=== PATIENT | female | born 1970 | race Caucasian/White ===

== ENCOUNTER 2019-03-11 10:58 | Emergency (ER) | payer OTHER, MEDICAID, SELFPAY ==
[2019-03-11 11:13] VITALS: BP 136/79; PULSE 87; RESP 18; TEMP 36.6; O2SAT 100
--- NOTE | 2019-03-11 11:57 | DI.RAD.S_ITS ---
PROCEDURE: XR HIP W PEL IF DONE LT 2V INDICATIONS: severe L hip pain, into groin TECHNIQUE: 2 views of the hip were acquired. COMPARISON: None. FINDINGS: Bones: No fractures or dislocations. No suspicious bony lesions. The visualized pelvic ring appears intact. Soft tissues: No suspicious soft tissue calcifications or masses. IMPRESSION: No acute fracture of the left hip. Dictated by: Nilton Soria M.D. on 03/11/2019 at 11:54 Approved by: Nilton Soria M.D. on 03/11/2019 at 11:55
[2019-03-11] MEDS: diazePAM 5 MG TABLET PO (12:32)
[2019-03-11] MEDS: KETOROLAC 60 MG/2 ML VIAL IM (12:33)
--- NOTE | 2019-03-11 12:46 | ED.LOWEXIN ---
HPI - Extremity Injury (Lower) General Chief Complaint: Extremity Injury, Lower Stated Complaint: severe L hip pain Time Seen by Provider: 03/11/19 11:10 Source: patient and family Mode of arrival: ambulatory Limitations: no limitations History of Present Illness HPI Narrative: 49-year-old female smoker presents with severe left anterior hip pain after she was rotating at the hip and reaching for an object to move. She denies any trauma. Her pain is worse with motion and improves with rest. It is largely in her anterior hip though some in her left buttock. There is minimal radiation of her pain. She denies any trouble controlling bowel or bladder. She has no numbness in her groin. She denies any lower extremity weakness. MD complaint: hip injury Onset (ago): day(s) Type of Injury: other Place: home Severity: moderate Relieving factors: immobilization and rest Exacerbating factors: weight bearing and movement Context: other Associated symptoms: snap/pop sensation and able to partially bear weight Other symptoms: none Related Data Previous Rx's Medication Instructions Recorded diazepam [Valium] 5 mg PO BID-QID PRN #10 tab 03/11/19 ketorolac 10 mg PO Q6H PRN #14 tab 03/11/19 Allergies Allergy/AdvReac Type Severity Reaction Status Date / Time carisoprodol [From Soma] Allergy Vomiting Verified 03/11/19 11:13 Review of Systems Constitutional Denies chills, Denies fever(s), Denies lethargy and Denies weakness Eyes Denies change in vision, Denies eye discharge, Denies irritation and Denies loss of vision ENT Ears, Nose, Mouth, and Throat: Denies change in voice, Denies neck pain and Denies sore throat Cardiovascular Denies chest pain, Denies irregular heart rhythm, Denies lightheadedness, Denies palpitations, Denies dyspnea, Denies dyspnea on exertion and Denies orthopnea Respiratory Denies cough, Denies dyspnea, Denies dyspnea on exertion and Denies wheezing Gastrointestinal Gastrointestinal: Denies abdominal pain, Denies change in bowel habits, Denies diarrhea, Denies nausea and Denies vomiting Genitourinary Denies hematuria, Denies flank pain, Denies urinary incontinence and Denies urinary urgency Musculoskeletal Reports limited range of motion and Denies neck pain Integumentary/Breasts Denies pruritus, Denies erythema, Denies rash and Denies wounds Neurologic Denies confusion, Denies loss of vision and Denies weakness Psychiatric Denies anxiety, Denies confusion, Denies depression, Denies homicidal ideation and Denies suicidal ideation Endocrine Denies palpitations Hematologic/Lymphatic Denies easy bruising Allergic/Immunologic Denies wheezing PFSH Social History Smoking Status: Current every day smoker Social History Smoking Status: Current every day smoker Exam Narrative Exam Narrative: GEN: AOx3 and in mild distress EYES: Pupils are equal, round, and reactive to light and accommodation. Extraoccular muscles are intact bilaterally. There is no subconjunctival hemorrhage or exudate. CHEST: Lungs are clear to auscultation bilaterally and free of wheezes, rales, or rhonchi. Heart rate is regular rhythm, there are no murmurs, clicks, rubs, or gallops. There is no chest wall tenderness. ABD: Abdomen is soft and nontender. There is no guarding or rebound. Bowel sounds are normal in all 4 quadrants. There is no mass or organomegaly. EXT: No shortening or external rotation of left lower extremity. 5/5 strength with sensation intact. 2+ patellar reflexes. Tender to palpate in anterior hip and left buttock Full but painful ROM of all extremities with no loss of sensation or strength. SKIN: Warm, pink, and dry. No erythema or rash Initial Vital Signs Initial Vital Signs: Vital Signs Temperature 97.9 F 03/11/19 11:13 Pulse Rate 87 03/11/19 11:13 Respiratory Rate 18 03/11/19 11:13 Blood Pressure 136/79 03/11/19 11:13 Pulse Oximetry 100 03/11/19 11:13 Course Orders Ordered: Discontinued Medications Diazepam (Valium) 5 mg PO NOW ONE Stop: 03/11/19 11:58 Last Admin: 03/11/19 12:32 Dose: 5 mg Ketorolac Tromethamine (Toradol) 60 mg IM NOW ONE Stop: 03/11/19 11:58 Last Admin: 03/11/19 12:33 Dose: 60 mg Vital Signs - 8 hr 03/11/19 11:13 Temperature 97.9 F Pulse Rate 87 Respiratory Rate 18 Blood Pressure 136/79 Pulse Oximetry 100 MDM - Extremity Injury (Lower) Imaging Data Hip Xray: Radiologist's impression: [address] [address] XRay Report Signed Patient: Criss MartínezMR#: [id number] : 1970Acct:[id number] Age/Sex: 49 / FDate of Service: 03/11/19 Loc: ED Accession Number: [id number] Procedure: XR hip w pel if done LT 2V Ordering Provider: Anup George D.O. PROCEDURE: XR HIP W PEL IF DONE LT 2V INDICATIONS: severe L hip pain, into groin TECHNIQUE: 2 views of the hip were acquired. COMPARISON: None. FINDINGS: Bones: No fractures or dislocations. No suspicious bony lesions. The visualized pelvic ring appears intact. Soft tissues: No suspicious soft tissue calcifications or masses. IMPRESSION: No acute fracture of the left hip. Dictated by: Nilton Soria M.D. on 03/11/2019 at 11:54 Approved by: Nilton Soria M.D. on 03/11/2019 at 11:55 Discharge Plan Departure Patient Disposition: Home Clinical Impression: Hip strain Qualifiers: Encounter type: initial encounter Laterality: left Qualified Code(s): S76.012A - Strain of muscle, fascia and tendon of left hip, initial encounter Discharge Date/Time: 03/11/19 13:26 Interventions: ED Discharge Assessment Last Done: 03/11/19 13:26 Instructions: DI for Groin Strain Activity Restrictions/Additional Instructions: *You have been diagnosed with [ Left hip pain ] *What to do: *Take medications as directed *Follow up with your primary care provider in 2-3 days, call for an appointment. Let them know you were seen in the Emergency Department and that we ask that you be seen in follow up *Return to ER if you should have any new, worsening or concerning symptoms Prescriptions: New ketorolac 10 mg tablet 10 mg PO Q6H PRN (Reason: pain) Qty: 14 RF: 0 diazepam [Valium] 5 mg tablet 5 mg PO BID-QID PRN (Reason: muscle spasm) Qty: 10 RF: 0 Referrals: Adan Haque MD [Primary Care Provider] -
== END 2019-03-11 13:26 | disposition home or self-care (01) ==
PROVIDERS: Emergency Provider Emergency Medicine; PCP Family Medicine
DX: S76.012A Strain of muscle, fascia and tendon of left hip, initial encounter (principal); X50.9XXA Other and unspecified overexertion or strenuous movements or postures, initial encounter
CPT/HCPCS: 73502; 99282; 99283; J1885

== ENCOUNTER → 2019-10-25 14:21 | Outpatient (CLI) | payer OTHER, MEDICAID, SELFPAY ==
[2019-10-25 17:10] LABS: Influenza A - CEPHEID Flu A NEGATIVE (NEGATIVE); Influenza B - CEPHEID Flu B NEGATIVE (NEGATIVE)
[2019-10-26 22:58] LABS: COVID19 Sendout Not Detected (Not Detected)
== END ==
PROVIDERS: PCP Family Medicine; Visit Provider Physician Assistant
DX: R05 Cough (principal)
CPT/HCPCS: 87502; 87635

== ENCOUNTER 2021-03-07 19:21 | Emergency (ER) | payer OTHER, MEDICAID, SELFPAY ==
[2021-03-07 19:30] VITALS: BP 171/101; PULSE 82; RESP 18; TEMP 37; O2SAT 100; BMI 30.4
--- NOTE | 2021-03-07 19:38 | DI.RAD.S_ITS ---
PROCEDURE: XR CHEST 1V INDICATIONS: chest pain TECHNIQUE: One view of the chest was acquired. COMPARISON: None. FINDINGS: Surgical changes and devices: None. Lungs and pleura: Lungs are mildly hyperlucent. There is radiodensity projecting the medial right upper lobe, likely related to degenerative hypertrophy at the end of the right 1st rib arc. No other alveolar consolidations or pleural effusion. No pneumothorax. Mediastinum: Mediastinal contours appear normal. Heart size is normal. Bones and chest wall: No suspicious bony lesions. Overlying soft tissues appear unremarkable. IMPRESSION: 1. Mild hyperlucency. 2. Probable degenerative opacity, less likely right upper lobe lung lesion. Two views of the chest or Chest CT as an outpatient is recommended. Dictated by: Danielle Alvarado M.D. on 03/07/2021 at 20:27 Approved by: Danielle Alvarado M.D. on 03/07/2021 at 20:29
[2021-03-07 19:48] LABS: Add Manual Diff / Slide Review NO; Basophils Absolute Auto 100 /uL (0-100); Basophils Percent Auto 0.7 % (0-2); Eosinophils Absolute Auto 100 /uL (0-450); Eosinophils Percent Auto 1.7 % (2-4); Hematocrit 39.8 % (36-46); Hemoglobin 13.4 g/dL (12.0-16.0); Lymphocytes Absolute Auto 2600 /uL (1100-4500); Lymphocytes Percent Auto 31.3 % (25-40); Mean Corpuscular HGB Conc 33.5 % (30-36); Mean Corpuscular Hemoglobin 30.2 PG (26-34); Mean Corpuscular Volume 90.1 fL (80-100); Monocytes Absolute Auto 600 /uL (0-900); Monocytes Percent Auto 7.3 % (3-14); Neutrophils Absolute Auto 4800 /uL (1500-7000); Platelet Count 243 X10^3/uL (150-400); Red Blood Cell Count 4.42 X10^6/uL (4.0-5.2); Red Cell Distribution Width 12.9 % (11.6-14.8); White Blood Cell Count 8.2 X10^3/uL (4.5-11.0)
[2021-03-07 19:50] LABS: Alanine Aminotransferase 20 IU/L (<35); Albumin 4.7 g/dL (3.5-5.0); Albumin Globulin Ratio 1.6 (1.0-2.8); Alkaline Phosphatase 102 U/L (38-126); Aspartate Aminotransferase 26 IU/L (14-36); BUN Creatinine Ratio 15.7 (6-22); Bilirubin Total 0.4 mg/dL (0.2-1.3); Blood Urea Nitrogen 14 mg/dL (7-17); Calcium 9.9 mg/dL (8.4-10.2); Carbon Dioxide 28 mmol/L (22-32); Chloride 105 mmol/L (98-107); Creatine Kinase 216 U/L (30-135); Estimated Glomerular Filt Rate > 60.0 mL/min (>60); Globulin 2.9 g/dL (1.7-4.1); Glucose 111 mg/dL (70-100); HEMOLYSIS < 15 (0-50); Lipase 237 U/L (23-300); Potassium 3.8 mmol/L (3.4-5.1); Sodium 141 mmol/L (137-145); Total Protein 7.6 g/dL (6.3-8.2)
[2021-03-07 20:02] LABS: Troponin I < 0.012 ng/mL (0.01-0.034)
[2021-03-07 20:06] LABS: CKMB % Relative Index 0.9 % (1.5-5.0); Creatine Kinase MB 2.04 ng/mL (<2.37)
[2021-03-07 20:22] VITALS: BP 152/88; PULSE 81; RESP 19; O2SAT 100
--- NOTE | 2021-03-07 20:25 | ED_ITS ---
HPI - Chest Pain General Chief Complaint: Chest Pain Stated Complaint: CHEST PAIN Time Seen by Provider: 03/07/21 19:44 Source: patient Mode of arrival: Ambulatory Limitations: no limitations History of Present Illness HPI narrative: 51-year-old female who is here for evaluation of lower left-sided chest discomfort. She also has discomfort in the middle for back. She also states that it radiates down her arm. Has started this morning at 0900 hours. It is reproducible with palpation of both her chest and her back. She was at work at the time. Did not come home from work in finished her day. No problems with breathing. Has never had anything like this in the past. Related Data Previous Rx's Medication Instructions Recorded diazepam 5 mg tablet (Valium) 5 mg PO BID-QID PRN #10 tab 03/11/19 ketorolac 10 mg tablet 10 mg PO Q6H PRN #14 tab 03/11/19 doxycycline monohydrate 100 mg 100 mg PO BID #20 tab 10/25/19 tablet prednisone 20 mg tablet See Rx Instructions PO DAILY #16 10/25/19 tab Allergies Allergy/AdvReac Type Severity Reaction Status Date / Time oseltamivir [From Tamiflu] Allergy Severe projectile Verified 10/25/19 14:00 vomiting carisoprodol [From Soma] Allergy Vomiting Verified 10/25/19 13:59 Sulfa (Sulfonamide AdvReac Vomiting Verified 03/07/21 19:35 Antibiotics) Review of Systems Constitutional Constitutional: Reports system reviewed and no additional complaints, except as documented Cardiovascular Cardiovascular: Reports as per HPI Respiratory Respiratory: Reports as per HPI Gastrointestinal Gastrointestinal: Reports system reviewed and no additional complaints, except as documented Musculoskeletal Musculoskeletal: Reports as per HPI Integumentary/Breasts Skin/Breast: Reports system reviewed and no additional complaints, except as documented Neurologic Neurologic: Reports system reviewed and no additional complaints, except as documented Hematologic/Lymphatic On Anticoagulants: No Patient History Medical History COPD with acute exacerbation Social History Smoking Status: Current every day smoker Smoking Status: Current every day smoker alcohol intake frequency: other Substance Use Type: marijuana Exam Initial Vital Signs Initial Vital Signs: Vital Signs Temperature 98.6 F 03/07/21 19:30 Pulse Rate 82 03/07/21 19:30 Respiratory Rate 18 03/07/21 19:30 Blood Pressure 171/101 H 03/07/21 19:30 Pulse Oximetry 100 03/07/21 19:30 Const General: cooperative and comfortable HENMT Head: normal to inspection and normocephalic Eyes General: appearance normal, both eyes and all related structures Resp Effort & Inspection: normal respiratory effort Auscultation: clear to auscultation bilaterally Cardio Rate: regular rate Rhythm: regular rhythm GI Inspection: normal to inspection Palpation: soft Back/Spine/Pelvis Thoracic/Lumbar Spine: paraspinal tenderness (Left-sided thorax along the medial aspect of the scapula) Skin General: no rashes or lesions noted Neuro General: patient alert, patient awake and moves all extremities Extrem General: normal to inspection and capillary refill normal Psych Appearance: grossly normal and well kempt Scores HEART Score Heart Score history: Slightly Suspicious Heart Score EKG: Normal Heart Score Age: 45-64 years old Heart Score risk factors: No known risk factors Heart Score troponin: < or = to normal limit Heart Score Total: 1 Course Orders Ordered: ED Orders 03/07/21 19:30 Complete Blood Count AUTO DIFF Stat Comprehensive Metabolic Panel Stat Lipase Stat Troponin & CK Cardiac Panel Stat 03/07/21 19:38 XR chest 1V Stat EKG-12 Lead Stat Vital Signs Vital signs: Vital Signs - 8 hr 03/07/21 19:30 03/07/21 20:22 Temperature 98.6 F Pulse Rate 82 81 Respiratory Rate 18 19 Blood Pressure 171/101 H 152/88 H Pulse Oximetry 100 100 MDM - Chest Pain Lab Data Attestation: I reviewed the patient's lab results. Result diagrams: 03/07/21 19:30 03/07/21 19:30 Labs: Lab Results 03/07/21 03/07/21 Range/Units 19:30 19:30 WBC 8.2 (4.5-11.0) X10^3/uL RBC 4.42 (4.0-5.2) X10^6/uL Hgb 13.4 (12.0-16.0) g/dL Hct 39.8 (36-46) % MCV 90.1 (80-100) fL MCH 30.2 (26-34) PG MCHC 33.5 (30-36) % RDW 12.9 (11.6-14.8) % Plt Count 243 (150-400) X10^3/uL Neut % (Auto) 59.0 (50-75) % Lymph % (Auto) 31.3 (25-40) % Geary % (Auto) 7.3 (3-14) % Eos % (Auto) 1.7 L (2-4) % Baso % (Auto) 0.7 (0-2) % Neut # (Auto) 4800 (1984-0890) /uL Lymph # (Auto) 2600 (7116-4304) /uL Geary # (Auto) 600 (0-900) /uL Eos # (Auto) 100 (0-450) /uL Baso # (Auto) 100 (0-100) /uL Sodium 141 (137-145) mmol/L Potassium 3.8 (3.4-5.1) mmol/L Chloride 105 (98-107) mmol/L Carbon Dioxide 28 (22-32) mmol/L BUN 14 (7-17) mg/dL Creatinine 0.89 (0.52-1.04) mg/dL Estimated GFR > 60.0 (>60) mL/min BUN/Creatinine Ratio 15.7 (6-22) Glucose 111 H (70-100) mg/dL Calcium 9.9 (8.4-10.2) mg/dL Total Bilirubin 0.4 (0.2-1.3) mg/dL AST 26 (14-36) IU/L ALT 20 (<35) IU/L Alkaline Phosphatase 102 (38-126) U/L Total Creatine Kinase 216 H (30-135) U/L CK-MB (CK-2) 2.04 (<2.37) ng/mL CK-MB (CK-2) Rel Index 0.9 L (1.5-5.0) % Troponin I < 0.012 (0.01-0.034) ng/mL Total Protein 7.6 (6.3-8.2) g/dL Albumin 4.7 (3.5-5.0) g/dL Globulin 2.9 (1.7-4.1) g/dL Albumin/Globulin Ratio 1.6 (1.0-2.8) Lipase 237 (23-300) U/L Imaging Data Chest x-ray: Radiologist's Impression: [address] [address]DDev ReportSigned Patient: Criss MartínezMR#: [id number]: 1970Acct:[id number]/Sex: 51 / FDate of Service: 03/07/21Loc: EDAccession Number: [id number] Procedure: XR chest 1V Ordering Provider: Adan Oliva D.O. PROCEDURE: XR CHEST 1V INDICATIONS: chest pain TECHNIQUE: One view of the chest was acquired. COMPARISON: None. FINDINGS: Surgical changes and devices: None. Lungs and pleura: Lungs are mildly hyperlucent. There is radiodensity projecting the medial right upper lobe, likely related to degenerative hypertrophy at the end of the right 1st rib arc. No other alveolar consolidations or pleural effusion. No pneumothorax. Mediastinum: Mediastinal contours appear normal. Heart size is normal. Bones and chest wall: No suspicious bony lesions. Overlying soft tissues appear unremarkable. IMPRESSION: 1. Mild hyperlucency. 2. Probable degenerative opacity, less likely right upper lobe lung lesion. Two views of the chest or Chest CT as an outpatient is recommended. Dictated by: Danielle Alvarado M.D. on 03/07/2021 at 20:27 Approved by: Danielle Alvarado M.D. on 03/07/2021 at 20:29 ECG Data Attestation: I personally reviewed and interpreted this ECG as follows: Interpretation: Sinus rhythm Ventricular rate 83 Normal axis Normal QRS Normal QTC No ST T wave changes MDM Narrative Medical decision making narrative: Patient is nontoxic. Troponin is negative. EKG is unremarkable. Low suspicion for ACS given the fact that her symptoms are reproducible with palpitations. Feel that we can hold on further workup for now. Do suspect that this is musculoskeletal given her presentation however she was given strict return precautions and follow-up instructions. She expressed understanding and agreement. Discharge Plan Departure Patient Disposition: Home Clinical Impression: Atypical chest pain Instructions: DI for Atypical Chest Pain Activity Restrictions/Additional Instructions: Your workup here in the emergency department include your x-rays and labs and EKG are all very reassuring. I do recommend that you start on a medicine called famotidine/Pepcid. You can purchase this [id number]. It may help with your symptoms. I recommend you contact your primary doctor for a follow-up to discuss further workup to include potential stress test and also potentially a referral to see Gastroenterology. Continue the rest of your medications as directed. Return to the emergency department for any new or worsening symptoms Prescriptions: No Action prednisone 20 mg tablet See Rx Instructions PO DAILY Qty: 16 RF: 0 doxycycline monohydrate 100 mg tablet 100 mg PO BID Qty: 20 RF: 0 ketorolac 10 mg tablet 10 mg PO Q6H PRN (Reason: pain) Qty: 14 RF: 0 diazepam [Valium] 5 mg tablet 5 mg PO BID-QID PRN (Reason: muscle spasm) Qty: 10 RF: 0 Referrals: Allen Rowan MD [Primary Care Provider] -
== END 2021-03-07 20:36 | disposition home or self-care (01) ==
PROVIDERS: Emergency Provider Emergency Medicine; PCP Internal Medicine
DX: R07.89 Other chest pain (principal); M54.6 Pain in thoracic spine
CPT/HCPCS: 36415; 71045; 80053; 82550; 82553; 83690; 84484; 85025; 93005; 99284

== ENCOUNTER 2021-03-30 13:29 | Emergency (ER) | payer OTHER, MEDICAID, SELFPAY ==
[2021-03-30 13:41] VITALS: BP 159/85; PULSE 84; RESP 16; TEMP 36.2; O2SAT 99; BMI 28.7
--- NOTE | 2021-03-30 14:32 | DI.RAD.S_ITS ---
PROCEDURE: XR FOREARM LT 2V INDICATIONS: Wrist, elbow pain TECHNIQUE: 2 views of the forearm were acquired. COMPARISON: [facility], CR, XR WRIST LT MIN 3V, 03/30/2021, 14:36. FINDINGS: Bones: No fractures or dislocations. No suspicious bony lesions. Soft tissues: No suspicious soft tissue calcifications or masses. IMPRESSION: Negative forearm radiographs. Dictated by: Darci Franklin M.D. on 03/30/2021 at 14:06 Approved by: Darci Franklin M.D. on 03/30/2021 at 14:08
--- NOTE | 2021-03-30 14:32 | DI.RAD.S_ITS ---
PROCEDURE: XR ELBOW LT MIN 3V INDICATIONS: Elbow pain TECHNIQUE: 3 views of the elbow were acquired. COMPARISON: [facility], CR, XR CHEST 1V, 03/07/2021, 20:04. [facility], CR, XR WRIST LT MIN 3V, 03/30/2021, 14:36. FINDINGS: Bones: No fractures or dislocations. No suspicious bony lesions. Soft tissues: No elbow joint effusion. No suspicious soft tissue calcifications. IMPRESSION: No acute bony abnormality or evident degenerative change. Dictated by: Darci Franklin M.D. on 03/30/2021 at 14:05 Approved by: Darci Franklin M.D. on 03/30/2021 at 14:06
--- NOTE | 2021-03-30 14:32 | DI.RAD.S_ITS ---
PROCEDURE: XR WRIST LT MIN 3V INDICATIONS: Wrist, elbow pain TECHNIQUE: For views of the wrist were acquired. COMPARISON: [facility], CR, XR FOREARM LT 2V, 03/30/2021, 14:36. FINDINGS: Bones: No fractures or dislocations. No suspicious bony lesions. Scaphoid view: Scaphoid is intact. Soft tissues: Globular amorphous calcification projects over the scapholunate interval. IMPRESSION: 1. No acute bony abnormality. 2. Globular amorphous calcification projects over the scapholunate interval and may be the result of ligamentous degeneration or remote soft tissue trauma. Dictated by: Darci Franklin M.D. on 03/30/2021 at 14:08 Approved by: Darci Franklin M.D. on 03/30/2021 at 14:11
[2021-03-30] MEDS: KETOROLAC 30 MG/ML VIAL 15 MG IV (14:44)
--- NOTE | 2021-03-30 14:50 | ED.EXTPRO ---
HPI - Extremity Problem <Garry Austin PA-C - Last Filed: 03/30/21 16:04> General Chief complaint: Extremity Problem,Nontraumatic Stated complaint: Can't move LT wrist Time Seen by Provider: 03/30/21 13:52 Source: patient Mode of arrival: Family Vehicle Limitations: no limitations History of Present Illness HPI Narrative: 51-year-old female with past medical history hypertension presents to the ED with 1 day of left wrist, forearm pain. Patient endorses she was awakened at 3:30 a.m. this morning by left-sided wrist pain that radiates to her left forearm and elbow. Patient denies trauma, works as a cashier and waiter/waitress. Patient denies numbness, tingling, weakness. Patient's wrist movement is limited by pain. Patient endorses a history of sleeping on her arm. No prior episodes of wrist pain. Denies fever, chills, chest pain, shortness of breath, cough. Reports taking hydrocodone with acetaminophen this morning without much relief. Related Data Previous Rx's Medication Instructions Recorded diazepam 5 mg tablet (Valium) 5 mg PO BID-QID PRN #10 tab 03/11/19 ketorolac 10 mg tablet 10 mg PO Q6H PRN #14 tab 03/11/19 doxycycline monohydrate 100 mg 100 mg PO BID #20 tab 10/25/19 tablet prednisone 20 mg tablet See Rx Instructions PO DAILY #16 10/25/19 tab Allergies Allergy/AdvReac Type Severity Reaction Status Date / Time oseltamivir [From Tamiflu] Allergy Severe projectile Verified 03/30/21 13:41 vomiting carisoprodol [From Soma] Allergy Vomiting Verified 03/30/21 13:41 Sulfa (Sulfonamide AdvReac Vomiting Verified 03/30/21 13:41 Antibiotics) Review of Systems <Garry Austin PA-C - Last Filed: 03/30/21 16:04> Constitutional Constitutional: Denies chills, Denies fever(s), Denies frequent falls, Denies lethargy and Denies weakness ENT Ears, Nose, Mouth, and Throat: Denies dizziness Cardiovascular Cardiovascular: Denies chest pain, Denies irregular heart rhythm, Denies lightheadedness, Denies palpitations, Denies dyspnea, Denies dyspnea on exertion and Denies orthopnea Respiratory Respiratory: Denies cough, Denies dyspnea, Denies dyspnea on exertion and Denies wheezing Gastrointestinal Gastrointestinal: Denies abdominal pain, Denies change in bowel habits, Denies diarrhea, Denies nausea and Denies vomiting Musculoskeletal Musculoskeletal: Denies numbness Comments: Left Wrist, forearm, elbow pain. No numbness, tingling, weakness Integumentary/Breasts Skin/Breast: Denies pruritus, Denies erythema, Denies rash and Denies wounds Neurologic Neurologic: Denies behavioral changes, Denies confusion, Denies dizziness, Denies frequent falls, Denies numbness and Denies weakness Psychiatric Psychiatric: Denies behavioral changes and Denies confusion Endocrine Endocrine: Denies palpitations Allergic/Immunologic Allergic/Immunologic: Denies wheezing Patient History <Garry Austin PA-C - Last Filed: 03/30/21 16:04> Medical History COPD with acute exacerbation Social History Smoking Status: Former smoker Smoking Status: Former smoker tobacco type: cigarettes alcohol intake frequency: a few times a month Substance Use Type: marijuana Exam <Garry Austin PA-C - Last Filed: 03/30/21 16:04> Initial Vital Signs Initial Vital Signs: Vital Signs Temperature 97.2 F L 03/30/21 13:41 Pulse Rate 84 03/30/21 13:41 Respiratory Rate 16 03/30/21 13:41 Blood Pressure 159/85 H 03/30/21 13:41 Pulse Oximetry 99 03/30/21 13:41 Const General: cooperative Chest Chest: normal inspection of the chest Resp Effort & Inspection: normal respiratory effort, able to speak in complete sentences, no respiratory distress and no use of accessory muscles Auscultation: clear to auscultation bilaterally, no rales, no rhonchi and no wheezes Cardio Rate: regular rate Rhythm: regular rhythm Heart Sounds: no click, no gallops, no murmurs and no rubs Pulses: normal peripheral pulses Skin General: no rashes or lesions noted, No jaundice and No petechiae Neuro General: patient alert, patient oriented x3, gait normal and no focal motor deficits Speech: speech normal Extrem General: full ROM, no clubbing, cyanosis or edema, no pedal edema and no calf tenderness Other: Range of motion of Left wrist limited by pain. No wrist drop, no sensory deficits. Thumb abduction intact. Neurovascularly intact. Cap refill less than 2 seconds. Extremity well perfused, warm. No deformities, swelling, bruising, redness. Full range of motion of fingers, elbow, shoulder. Psych Appearance: well kempt Mental Status: mental status grossly normal Attitude: cooperative Thought Content: normal and suicidality Judgment: judgment good <Taryn Farnsworth DO - Last Filed: 03/31/21 07:37> Initial Vital Signs Initial Vital Signs: Vital Signs Temperature 97.2 F L 03/30/21 13:41 Pulse Rate 84 03/30/21 13:41 Respiratory Rate 16 03/30/21 13:41 Blood Pressure 159/85 H 03/30/21 13:41 Pulse Oximetry 99 03/30/21 13:41 Course <Garry Austin PA-C - Last Filed: 03/30/21 16:04> Course Course Narrative: Pain improved with Ketorolac. Neg xrays. Will DC home with ortho referral. Orders Ordered: Discontinued Medications Sodium Chloride (Normal Saline 0.9%) 1,000 mls @ 1,000 mls/hr IV BOLUS ONE Stop: 03/30/21 14:51 Last Admin: 03/30/21 14:55 Dose: Not Given Documented by: ATILIO Ketorolac Tromethamine (Ketorolac 30 Mg/Ml Vial) 15 mg IM NOW ONE Stop: 03/30/21 14:33 Last Admin: 03/30/21 14:56 Dose: Not Given Documented by: ATILIO Ketorolac Tromethamine (Ketorolac 30 Mg/Ml Vial) 15 mg IV NOW ONE Stop: 03/30/21 14:41 Last Admin: 03/30/21 14:44 Dose: 15 mg Documented by: ATILIO Vital Signs Vital signs: Vital Signs - 8 hr 03/30/21 13:41 Temperature 97.2 F L Pulse Rate 84 Respiratory Rate 16 Blood Pressure 159/85 H Pulse Oximetry 99 <Taryn Farnsworth DO - Last Filed: 03/31/21 07:37> Orders Ordered: Discontinued Medications Sodium Chloride (Normal Saline 0.9%) 1,000 mls @ 1,000 mls/hr IV BOLUS ONE Stop: 03/30/21 14:51 Last Admin: 03/30/21 14:55 Dose: Not Given Documented by: ATILIO Ketorolac Tromethamine (Ketorolac 30 Mg/Ml Vial) 15 mg IM NOW ONE Stop: 03/30/21 14:33 Last Admin: 03/30/21 14:56 Dose: Not Given Documented by: ATILIO Ketorolac Tromethamine (Ketorolac 30 Mg/Ml Vial) 15 mg IV NOW ONE Stop: 03/30/21 14:41 Last Admin: 03/30/21 14:44 Dose: 15 mg Documented by: ATILIO Vital Signs Vital signs: Vital Signs - 8 hr 03/30/21 13:41 Temperature 97.2 F L Pulse Rate 84 Respiratory Rate 16 Blood Pressure 159/85 H Pulse Oximetry 99 MDM - Extremity (Nontraumatic) <Garry Austin PA-C - Last Filed: 03/30/21 16:04> Imaging Data Extremity x-ray #1: Radiologist's Impression: PROCEDURE: XR WRIST LT MIN 3V INDICATIONS: Wrist, elbow pain TECHNIQUE: For views of the wrist were acquired. COMPARISON: [facility], , XR FOREARM LT 2V, 03/30/2021, 14:36. FINDINGS: Bones: No fractures or dislocations. No suspicious bony lesions. Scaphoid view: Scaphoid is intact. Soft tissues: Globular amorphous calcification projects over the scapholunate interval. IMPRESSION: 1. No acute bony abnormality. 2. Globular amorphous calcification projects over the scapholunate interval and may be the result of ligamentous degeneration or remote soft tissue trauma. Dictated by: Darci Franklin M.D. on 03/30/2021 at 14:08 Approved by: Darci Franklin M.D. on 03/30/2021 at 14:11 Extremity x-ray #2: Radiologist's Impression: PROCEDURE: XR FOREARM LT 2V INDICATIONS: Wrist, elbow pain TECHNIQUE: 2 views of the forearm were acquired. COMPARISON: [facility], CR, XR WRIST LT MIN 3V, 03/30/2021, 14:36. FINDINGS: Bones: No fractures or dislocations. No suspicious bony lesions. Soft tissues: No suspicious soft tissue calcifications or masses. IMPRESSION: Negative forearm radiographs. Dictated by: Darci Franklin M.D. on 03/30/2021 at 14:06 Approved by: Darci Franklin M.D. on 03/30/2021 at 14:08 Extremity x-ray #3: Radiologist's Impression: PROCEDURE: XR ELBOW LT MIN 3V INDICATIONS: Elbow pain TECHNIQUE: 3 views of the elbow were acquired. COMPARISON: [facility], CR, XR CHEST 1V, 03/07/2021, 20:04. [facility], CR, XR WRIST LT MIN 3V, 03/30/2021, 14:36. FINDINGS: Bones: No fractures or dislocations. No suspicious bony lesions. Soft tissues: No elbow joint effusion. No suspicious soft tissue calcifications. IMPRESSION: No acute bony abnormality or evident degenerative change. Dictated by: Darci Franklin M.D. on 03/30/2021 at 14:05 Approved by: Darci rFanklin M.D. on 03/30/2021 at 14:06 MDM Narrative Medical decision making narrative: 51-year-old female with past medical history hypertension presents to the ED with 1 day of left wrist, forearm pain. Concern for fractures versus carpal tunnel versus sprain/strain vs other neuropathy. Will order x-rays, give Ketoralac. Will reassess. Likely DC home with ortho referral. Discharge Plan Departure Patient Disposition: Home Clinical Impression: Left wrist pain Instructions: DI for Wrist Pain Activity Restrictions/Additional Instructions: Likely neuropathy, no fractures. Can use a wrist splint, ibuprofen for pain. Follow-up with ortho in a week. If pain worsens or if you experience numbness, tingling, weakness, return to the ED. Prescriptions: No Action prednisone 20 mg tablet See Rx Instructions PO DAILY Qty: 16 RF: 0 doxycycline monohydrate 100 mg tablet 100 mg PO BID Qty: 20 RF: 0 ketorolac 10 mg tablet 10 mg PO Q6H PRN (Reason: pain) Qty: 14 RF: 0 diazepam [Valium] 5 mg tablet 5 mg PO BID-QID PRN (Reason: muscle spasm) Qty: 10 RF: 0 Referrals: Allen Rowan MD [Primary Care Provider] - <Taryn Farnsworth DO - Last Filed: 03/31/21 07:37> Sign Out Provider Sign Out Attestation: I was immediately available in the department for consultation. Documentation has been reviewed. I agree with assessment and plan.
[2021-03-30 16:05] VITALS: BP 138/75; PULSE 78; RESP 18; O2SAT 99
== END 2021-03-30 16:07 | disposition home or self-care (01) ==
PROVIDERS: Emergency Provider Student in an Organized Health Care Education/Training Program; PCP Internal Medicine
DX: M25.532 Pain in left wrist (principal); M25.522 Pain in left elbow
CPT/HCPCS: 36415; 73080; 73090; 73110; 96374; 99284; J1885

== ENCOUNTER → 2022-05-13 09:48 | Outpatient (CLI) | payer OTHER, SELFPAY ==
--- NOTE | 2022-05-13 09:53 | DI.RAD.S_ITS ---
PROCEDURE: XR FOOT LT MIN 3V INDICATIONS: LEFT FOOT PAIN AND BRUISING TECHNIQUE: 3 views of the foot were acquired. COMPARISON: None. FINDINGS: Bones: No fractures or dislocations. No suspicious bony lesions. Soft tissues: No tibiotalar joint effusion. Achilles tendon appears normal. IMPRESSION: No visible fracture or suspicious bone lesion. Dictated by: Danielle Alvarado M.D. on 05/13/2022 at 12:54 Approved by: Danielle Alvarado M.D. on 05/13/2022 at 12:55
--- NOTE | 2022-05-13 09:53 | DI.RAD.S_ITS ---
PROCEDURE: XR FOOT LT MIN 3V INDICATIONS: left foot pain and bruising TECHNIQUE: 3 views of the foot were acquired. COMPARISON: None. FINDINGS: Bones: No fractures or dislocations. No suspicious bony lesions. Soft tissues: No tibiotalar joint effusion. Achilles tendon appears normal. IMPRESSION: No acute osseous abnormality. If symptoms persist, follow-up radiographs and/or CT may be helpful for further evaluation. Dictated by: Zechariah Fitzpatrick M.D. on 05/13/2022 at 10:57 Approved by: Zechariah Fitzpatrick M.D. on 05/13/2022 at 11:01
== END ==
LOC: RAD 09:52
PROVIDERS: PCP Internal Medicine; Referring Provider Registered Nurse; Visit Provider Registered Nurse
DX: M79.672 Pain in left foot (principal)
CPT/HCPCS: 73630

== ENCOUNTER → 2022-09-28 19:19 | Outpatient (CLI) | payer OTHER, SELFPAY ==
--- NOTE | 2022-09-28 19:21 | DI.RAD.S_ITS ---
PROCEDURE: XR CHEST 2V INDICATIONS: Worsening cough TECHNIQUE: 2 views of the chest were acquired. COMPARISON: [facility], CR, XR CHEST 1V, 03/07/2021, 20:04. FINDINGS: Surgical changes and devices: None. Lungs and pleura: Lungs are clear. No pleural effusions or pneumothorax. Mediastinum: Mediastinal contours are normal. Heart size is normal. Bones and chest wall: No suspicious bony abnormalities. Soft tissues appear unremarkable. IMPRESSION: No acute cardiopulmonary abnormality. Dictated by: Randell Garrido M.D. on 09/28/2022 at 19:54 Approved by: Randell Garrido M.D. on 09/28/2022 at 19:54
== END ==
PROVIDERS: PCP Family Medicine; Referring Provider Physician Assistant; Visit Provider Physician Assistant
DX: R05.9 Cough, unspecified (principal)
CPT/HCPCS: 71046

== ENCOUNTER → 2022-10-10 07:47 | Outpatient (CLI) | payer OTHER, SELFPAY ==
[2022-10-10 09:38] LABS: Alanine Aminotransferase 16 IU/L (<35); Albumin Globulin Ratio 1.7 (1.0-2.8); Alkaline Phosphatase 95 U/L (38-126); Aspartate Aminotransferase 17 IU/L (14-36); BUN Creatinine Ratio 13.8 (6-22); Bilirubin Total 0.4 mg/dL (0.2-1.3); Blood Urea Nitrogen 11 mg/dL (7-17); Calcium 9.3 mg/dL (8.4-10.2); Carbon Dioxide 32 mmol/L (22-32); Chloride 103 mmol/L (98-107); Cholesterol 160 mg/dL (140-199); Estimated Glomerular Filt Rate > 60 mL/min (>60); Globulin 2.4 g/dL (1.7-4.1); Glucose 82 mg/dL (70-100); HDL Cholesterol 47 mg/dL (40-60); HEMOLYSIS < 15 (0-50); LDL Cholesterol Calculated 90 mg/dL (<100); Potassium 4.5 mmol/L (3.4-5.1); Sodium 140 mmol/L (137-145); Total Protein 6.4 g/dL (6.3-8.2); Triglycerides 116 mg/dL (35-150)
[2022-10-10 11:10] LABS: Creatinine Urine Random 164.8 mg/dL
[2022-10-10 13:20] LABS: Hemoglobin A1C% w Est Avg Glu 5.5 % (4.0-6.0)
== END ==
PROVIDERS: PCP Family Medicine; Referring Provider Family Medicine; Visit Provider Family Medicine
DX: I10 Essential (primary) hypertension (principal); E78.5 Hyperlipidemia, unspecified; R73.9 Hyperglycemia, unspecified
CPT/HCPCS: 36415; 80053; 80061; 82043; 82570; 83036

== ENCOUNTER 2023-02-28 10:23 | Emergency (ER) | payer OTHER, SELFPAY ==
[2023-02-28 10:33] VITALS: BP 159/87; PULSE 80; RESP 16; TEMP 36.2; O2SAT 97; BMI 28.7
--- NOTE | 2023-02-28 11:34 | ED_ITS ---
HPI - URI/Sore Throat General Chief Complaint: Upper Respiratory Symptoms Stated Complaint: Covid+ Time Seen by Provider: 02/28/23 10:25 History of Present Illness HPI Narrative: 53-year-old female smoker with history of hypertension and COPD presents with minor upper respiratory symptoms including runny nose, sore throat, dry hacking cough and some body aches. Her significant other was just recently diagnosed with COVID after traveling and she tested positive last night. She is here to discuss whether not she may be a good candidate for Paxlovid Related Data Home Medications Medication Instructions Recorded Confirmed bupropion HCl 300 mg 24 hr tablet, 300 mg PO DAILY 06/22/22 09/28/22 extended release quetiapine 100 mg tablet 100 mg PO BEDTIME 06/22/22 09/28/22 Previous Rx's Medication Instructions Recorded lisinopril 20 mg tablet 20 mg PO DAILY #90 tabs 08/31/22 atorvastatin 10 mg tablet 10 mg PO BEDTIME #90 tabs 01/13/23 Allergies Allergy/AdvReac Type Severity Reaction Status Date / Time oseltamivir [From Tamiflu] Allergy Severe projectile Verified 09/28/22 18:15 vomiting carisoprodol [From Soma] Allergy Vomiting Verified 09/28/22 18:15 Sulfa (Sulfonamide AdvReac Vomiting Verified 09/28/22 18:15 Antibiotics) Review of Systems Review of Systems Narrative: GENERAL: See HPI HEENT: Denies sinus pain, ear pain, sore throat, difficulty swallowing, dizziness. RESPIRATORY: See HPI CARDIOVASCULAR: Denies chest pain, palpitations, orthopnea, edema, GASTROINTESTINAL: Denies nausea, vomiting, abdominal pain, diarrhea, constipation, melena. : Denies dysuria, frequency, incontinence, hematuria, urinary retention. MUSCULOSKELETAL: denies weakness, joint pain, or bony pain SKIN: Denies rash, skin lesions, or other NEUROLOGIC: Denies weakness, headache, numbness, change in speech, confusion, seizures, incoordination. PSYCHIATRIC: No concerning psychosocial issues. 12 point review of systems is negative except for those stated above Patient History Medical History (Updated 02/28/23 @ 10:41 by Anup George DO) Abnormal chest xray Acne Anxiety Carpal tunnel syndrome Chronic back pain COPD (chronic obstructive pulmonary disease) COPD with acute exacerbation Depression Foot pain Koko's disease Hearing loss Hemorrhoid (~2000) History of bipolar disorder History of recurrent ear infection Kidney stones (~2006) Migraines Osteoarthritis Peptic ulcer disease Personality disorder Plantar warts Pneumothorax Restless leg syndrome Scoliosis Tinnitus Vision disorder Surgical History (Updated 07/23/22 @ 19:08 by aMriposa Potter) Anesthesia History of hysterectomy (~2004) History of knee surgery Family History (Updated 07/23/22 @ 19:13 by Mariposa Potter) Father Cancer History of heart disease Hypertension Hyperlipidemia Mental health problem Stroke Mother History of heart disease Hypertension Hyperlipidemia Mental health problem Sister Breast cancer Diabetes mellitus Hypertension Hyperlipidemia Mental health problem Grandfather History of heart disease Hyperlipidemia Hypertension Stroke Grandmother History of heart disease Hypertension Hyperlipidemia Mental health problem Stroke Grandmother Stroke Social History Smoking Status: Current every day smoker Tobacco: How many years used: 40 alcohol intake: current (1 drink every couple months ) substance use type: former substance user (methamphetamine ), marijuana (1 time per month ) and methamphetamine (Quit 2000 (10 years) ) Smoking Status: Current every day smoker tobacco type: cigarettes alcohol intake frequency: a few times a month Substance Use Type: marijuana Exam Narrative Exam Narrative: GEN: AOx3 and in mild distress EYES: Pupils are equal, round, and reactive to light and accommodation. Extraoccular muscles are intact bilaterally. There is no subconjunctival hemorrhage or exudate. CHEST: Lungs are clear to auscultation bilaterally and free of wheezes, rales, or rhonchi. Heart rate is regular rhythm, there are no murmurs, clicks, rubs, or gallops. There is no chest wall tenderness. ABD: Abdomen is soft and nontender. There is no guarding or rebound. Bowel sounds are normal in all 4 quadrants. There is no mass or organomegaly. EXT: Full painless ROM of all extremities with no loss of sensation or strength. SKIN: Warm, pink, and dry. No erythema or rash Initial Vital Signs Initial Vital Signs: Vital Signs Temperature 97.2 F L 02/28/23 10:33 Pulse Rate 80 02/28/23 10:33 Respiratory Rate 16 02/28/23 10:33 Blood Pressure 159/87 H 02/28/23 10:33 Pulse Oximetry 97 02/28/23 10:33 Oxygen Delivery Method Room Air 02/28/23 10:33 Course Vital Signs Vital signs: Vital Signs - 8 hr 02/28/23 10:33 Temperature 97.2 F L Pulse Rate 80 Respiratory Rate 16 Blood Pressure 159/87 H Pulse Oximetry 97 Oxygen Delivery Method Room Air MDM - URI/Sore Throat MDM Narrative Medical decision making narrative: CC: 53-year-old female smoker with positive COVID test Complicating co-morbidities: Age, smoking, hypertension Data collected from: Patient Medical records reviewed: Prior notes reviewed in our EMR Differential considered, but not limited to: COVID versus other Exam documented above, pertinent findings include: No hypoxemia or increased work of breathing Discussion: Patient with very mild symptoms and recent diagnosis of COVID wanting to talk about the potential of a prescription for Paxlovid. She states that she is already feeling better and actually does not want the prescription but promised her significant other she would come and be evaluated. We did go through the potential risks and benefits including medication interactions at which point she states that she would prefer not to get the prescription and will continue to treat it symptomatically. She understands that she is still within the time frame and has up until the 5 day point to return for this evaluation. Otherwise she is given typical return precautions and has had her questions answered to her apparent satisfaction Disposition: see below, along with detailed discharge instructions that have been reviewed with patient as well as indications for ED re-evaluation and additional outpatient follow up Discharge Plan Departure Patient Disposition: Home Clinical Impression: COVID-19 Instructions: COVID-19 Activity Restrictions/Additional Instructions: *You have been diagnosed with [ COVID-19] *What to do: ?* per recommendations from the CDC and the [facility] Department of Health ?* stay home except to get medical care. ?Restrict activities outside your home, except for getting medical care. ?Do not go to work, school, or public are as. ?Avoid using public transportation, ride sharing, or taxis. ?* separate yourself from other people in your home. ?* call ahead before visiting your doctor ?* Wear a facemask ?* Cover your coughs and sneezes ?* Clean your hands often ?* Avoid sharing household items ?* Clean all high-touch services every day ?* Monitor your symptoms and seek prompt medical attention if your illness is worsening, particularly with difficulty in breathing. You may discontinue your isolation when: ?1. You have been fever-free for at least 24 hours without the use of fever reducing medication, AND ?2. Your symptoms are getting better, AND ?3. At least 5 days have passed since symptoms first appeared ?4. If you have fever, continue to stay home until fever resolves Individuals with laboratory confirmed COVID-19 who have not had any symptoms may discontinue home isolation when at least 5 days have passed since the date of their first COVID-19 diagnostic test and have had no subsequent illness You should notifiy any friends and family that have been in close contact *If up to date on COVID Vaccines, then they do not need to quarantine unless symptoms develop. Get tested on day 5 (or sooner if symptoms develop). Take precautions and watch for symptoms until day 10 *If NOT up to date on COVID Vaccines, then CDC recommends quarantine for at least 5 full days. Wear a well fitted mask at home if you must be around others. If they ?develop symptoms they should get tested. If they remain asymptomatic they should get tested on day 5. They should take precautions and monitor for symptoms until day 10. Prescriptions: No Action lisinopril 20 mg tablet 20 mg PO DAILY Qty: 90 3RF atorvastatin 10 mg tablet 10 mg PO BEDTIME Qty: 90 1RF quetiapine 100 mg tablet 100 mg PO BEDTIME Rx Instructions: take 125mg daily bupropion HCl 300 mg tablet extended release 24 hr 300 mg PO DAILY Referrals: Carol Wood DO [Primary Care Provider] - Stand Alone Forms: Patient Portal/API
== END 2023-02-28 10:43 | disposition home or self-care (01) ==
PROVIDERS: Emergency Provider Emergency Medicine; PCP Family Medicine
DX: U07.1 COVID-19 (principal)
CPT/HCPCS: 99281; 99282

== ENCOUNTER → 2023-09-09 10:31 | Outpatient (CLI) | payer OTHER, SELFPAY ==
[2023-09-09 11:56] LABS: Influenza A - CEPHEID Flu A NEGATIVE (NEGATIVE); Influenza B - CEPHEID Flu B NEGATIVE (NEGATIVE); Respiratory Syncytial Virus Negative (Negative)
[2023-09-09 12:07] LABS: COVID-19 CEPHEID 4-PLEX PCR Negative (Negative)
== END ==
PROVIDERS: PCP Family Medicine; Visit Provider Nurse Practitioner Family
DX: B34.9 Viral infection, unspecified (principal); J02.9 Acute pharyngitis, unspecified
CPT/HCPCS: 0241U; 87070

== ENCOUNTER → 2023-12-06 15:36 | Outpatient (CLI) | payer OTHER, SELFPAY ==
--- NOTE | 2023-12-06 17:03 | DI.RAD.S_ITS ---
PROCEDURE: XR KNEE LT 3V INDICATIONS: sub patellar pain, remote hx arthroscopy TECHNIQUE: 3 views of the knee were acquired. COMPARISON: None. FINDINGS: Bones: No fractures or dislocations. No suspicious bony lesions. Soft tissues: Mild joint effusion. No suspicious soft tissue calcifications. IMPRESSION: Mild effusion. No visualized acute fracture or dislocation. However, if clinical concern and/or pain persist, short interval imaging followup in 7-10 days is recommended, as occult injury cannot be definitively excluded. Dictated by: Pepper Rey M.D. on 12/07/2023 at 8:27 Approved by: Pepper Rey M.D. on 12/07/2023 at 8:31
== END ==
PROVIDERS: PCP Family Medicine; Referring Provider Family Medicine; Visit Provider Family Medicine
DX: E78.5 Hyperlipidemia, unspecified (principal); M25.562 Pain in left knee
CPT/HCPCS: 73562

== ENCOUNTER 2023-12-30 18:06 | Emergency (ER) | payer OTHER, SELFPAY ==
[2023-12-30 18:12] VITALS: BP 156/91; PULSE 97; RESP 14; TEMP 36.8; O2SAT 100; BMI 28.7
--- NOTE | 2023-12-30 18:15 | DI.RAD.S_ITS ---
PROCEDURE: XR KNEE LT 3V INDICATIONS: felt a pop TECHNIQUE: 3 views of the knee were acquired. COMPARISON: [facility], CR, XR KNEE LT 3V, 12/06/2023, 17:02. FINDINGS: Bones: No fractures or dislocations. No suspicious bony lesions. Soft tissues: No joint effusion. No suspicious soft tissue calcifications. IMPRESSION: No acute bony abnormality or significant effusion. If symptoms persist with conservative management, consider cross-sectional imaging such as CT or MRI. Approved by: Rosita Deluca M.D.,Ph.D. on 12/30/2023 at 18:05
[2023-12-30 20:15] VITALS: PULSE 89; O2SAT 100
[2023-12-30 20:16] VITALS: BP 182/72; PULSE 88; O2SAT 100
[2023-12-30 20:30] VITALS: PULSE 87; O2SAT 100
[2023-12-30 20:31] VITALS: BP 122/55; PULSE 87; O2SAT 100
[2023-12-30 21:00] VITALS: BP 124/76; PULSE 86; O2SAT 100
--- NOTE | 2023-12-30 21:14 | ED.LOWEXIN ---
HPI - Extremity Injury (Lower) General Chief Complaint: Extremity Injury, Lower Stated Complaint: lt knee pain Time Seen by Provider: 12/30/23 19:57 Source: patient Mode of arrival: Wheelchair History of Present Illness HPI Narrative: 53-year-old female presents for left knee pain. Patient states that she was walking around a corner when she felt her knee give out to the side. Since then she was not been able to completely straighten her leg and she has had difficulty ambulating due to discomfort. Reports history of multiple orthopedic surgeries in the remote past, but she does not have established care with an orthopedic doctor in the area. Related Data Home Medications Medication Instructions Recorded Confirmed bupropion HCl 300 mg 24 hr tablet, 300 mg PO DAILY 06/22/22 12/06/23 extended release quetiapine 100 mg tablet 100 mg PO BEDTIME 06/22/22 12/06/23 quetiapine 25 mg tablet 25 mg PO ONCE PM 12/06/23 12/06/23 Previous Rx's Medication Instructions Recorded fluticasone propionate 50 1 spray intranasal Q12H #16 grams 09/09/23 mcg/actuation nasal spray,suspension (Flonase Allergy Relief) ondansetron HCl 4 mg tablet 4 mg PO Q8H PRN nausea and 09/09/23 vomiting #14 tabs atorvastatin 10 mg tablet 10 mg PO BEDTIME #90 tabs 12/06/23 lisinopril 20 mg tablet 20 mg PO DAILY #90 tabs 12/06/23 tramadol 50 mg tablet 50 mg PO Q8H PRN pain #10 tabs 12/30/23 Allergies Allergy/AdvReac Type Severity Reaction Status Date / Time oseltamivir [From Tamiflu] Allergy Severe projectile Verified 12/30/23 18:12 vomiting carisoprodol [From Soma] Allergy Vomiting Verified 12/30/23 18:12 Sulfa (Sulfonamide AdvReac Vomiting Verified 12/30/23 18:12 Antibiotics) Review of Systems Review of Systems Narrative: See HPI Patient History Medical History Vision disorder Plantar warts Acne Osteoarthritis Pneumothorax COPD (chronic obstructive pulmonary disease) Abnormal chest xray Personality disorder Depression History of bipolar disorder Anxiety Restless leg syndrome Migraines Scoliosis Foot pain Chronic back pain Carpal tunnel syndrome Tinnitus History of recurrent ear infection Hearing loss Kidney stones (~2006) Peptic ulcer disease Hemorrhoid (~2000) Koko's disease COPD with acute exacerbation Surgical History Anesthesia History of hysterectomy (~2004) History of knee surgery Family History Father Cancer History of heart disease Hypertension Hyperlipidemia Mental health problem Stroke Mother History of heart disease Hypertension Hyperlipidemia Mental health problem Sister Breast cancer Diabetes mellitus Hypertension Hyperlipidemia Mental health problem Grandfather History of heart disease Hyperlipidemia Hypertension Stroke Grandmother History of heart disease Hypertension Hyperlipidemia Mental health problem Stroke Grandmother Stroke Social History Smoking Status: Former smoker Tobacco: How many years used: 40 alcohol intake: current (1 drink every couple months ) substance use type: former substance user (methamphetamine ), marijuana (1 time per month ) and methamphetamine (Quit 2000 (10 years) ) Smoking Status: Former smoker tobacco type: cigarettes alcohol intake frequency: holidays/special occasions only Substance Use Type: marijuana Exam Initial Vital Signs Initial Vital Signs: Vital Signs Temperature 98.2 F 12/30/23 18:12 Pulse Rate 97 H 12/30/23 18:12 Respiratory Rate 14 12/30/23 18:12 Blood Pressure 156/91 H 12/30/23 18:12 Pulse Oximetry 100 12/30/23 18:12 Oxygen Delivery Method Room Air 12/30/23 18:12 Const: Awake, alert, uncomfortable MSK: No obvious deformity, generalized tenderness to palpation over knee joint Skin: Warm, Dry, intact, no rashes Neuro: AO x3, CN II-XII grossly intact, moves all extremities Course Orders Ordered: Discontinued Medications Acetaminophen (Acetaminophen 325 Mg Tablet) 975 mg PO NOW ONE Stop: 12/30/23 21:14 Last Admin: 12/30/23 21:20 Dose: 975 mg Documented By: Diazepam (Diazepam 2 Mg Tablet) 2 mg PO NOW ONE Stop: 12/30/23 21:14 Last Admin: 12/30/23 21:20 Dose: 2 mg Documented By: Ketorolac Tromethamine (Ketorolac 30 Mg/Ml Vial) 30 mg IM NOW ONE Stop: 12/30/23 21:14 Last Admin: 12/30/23 21:21 Dose: 15 mg Documented By: Ondansetron HCl (Ondansetron 4 Mg/2 Ml Inj) 4 mg IV NOW ONE Stop: 12/30/23 21:20 Last Admin: 12/30/23 21:27 Dose: 4 mg Documented By: Oxycodone HCl (Oxycodone Ir 5 Mg Tablet) 5 mg PO NOW ONE Stop: 12/30/23 21:14 Last Admin: 12/30/23 21:20 Dose: 5 mg Documented By: Tramadol HCl (Tramadol 50 Mg Prepack) 1 bottle MISC DIRECTED ONE Stop: 12/30/23 21:30 Last Admin: 12/30/23 21:41 Dose: 1 bottle Documented By: Vital Signs Vital signs: Vital Signs - 8 hr 12/30/23 18:12 12/30/23 20:15 12/30/23 20:16 Temperature 98.2 F Pulse Rate 97 H 89 Respiratory Rate 14 Blood Pressure 156/91 H 182/72 H Pulse Oximetry 100 100 Oxygen Delivery Method Room Air 12/30/23 20:16 Temperature Pulse Rate 88 Respiratory Rate Blood Pressure Pulse Oximetry 100 Oxygen Delivery Method MDM - Extremity Injury (Lower) Differential Diagnosis Differential diagnosis: Likely acute internal derangement of knee, fracture of femur and ankle fracture Imaging Data Extremity x-ray #1: My Impression: PROCEDURE: XR KNEE LT 3V INDICATIONS: felt a pop TECHNIQUE: 3 views of the knee were acquired. COMPARISON: [facility], , XR KNEE LT 3V, 12/06/2023, 17:02. FINDINGS: Bones: No fractures or dislocations. No suspicious bony lesions. Soft tissues: No joint effusion. No suspicious soft tissue calcifications. IMPRESSION: No acute bony abnormality or significant effusion. If symptoms persist with conservative management, consider cross-sectional imaging such as CT or MRI. Approved by: Rosita Deluca M.D.,Ph.D. on 12/30/2023 at 18:05 [facility] Narrative Medical decision making narrative: Atraumatic knee pain after turning a corner. Pain with extension of knee joint. X-rays negative for acute findings, however without trauma it was much more likely that this is a ligamentous or tendinous injury. Placed in knee immobilizer, given crutches. Patient was advised that any internal derangements of the knee would not be seen on x-ray and she would need to follow up with Orthopedic surgery to see if any additional imaging such as MRI would be needed. Short course of pain medications sent to pharmacy of choice Discharge Plan Departure Patient Disposition: Home Clinical Impression: Acute knee pain Qualifiers: Laterality: left Qualified Code(s): M25.562 - Pain in left knee Instructions: DI for Knee Sprain Activity Restrictions/Additional Instructions: Your x-rays today were normal. Based on your description of the event you may have an underlying ligamentous injury. You will need to follow up with Orthopedic surgery. You may eventually need an MRI, however this would not be done in an emergency department, this would be done outpatient at the discretion of Orthopedics or your primary doctor. For pain control start with 400 mg of ibuprofen and up to 1000 mg of Tylenol every 6 hours as needed for pain. Take no more than 4000 mg of Tylenol daily. If this does not make your pain bearable then a short course of pain medication has been sent to your pharmacy. Prescriptions: New tramadol 50 mg tablet 50 mg PO Q8H PRN (Reason: pain) Qty: 10 0RF No Action fluticasone propionate [Flonase Allergy Relief] 50 mcg/actuation spray,suspension 1 spray intranasal Q12H Qty: 16 0RF Rx Instructions: administer into each nostril ondansetron HCl 4 mg tablet 4 mg PO Q8H PRN (Reason: nausea and vomiting) Qty: 14 0RF quetiapine 100 mg tablet 100 mg PO BEDTIME Rx Instructions: take 125mg daily bupropion HCl 300 mg tablet extended release 24 hr 300 mg PO DAILY quetiapine 25 mg tablet 25 mg PO ONCE PM Patient Comments: [facility], Tele-doc atorvastatin 10 mg tablet 10 mg PO BEDTIME Qty: 90 3RF lisinopril 20 mg tablet 20 mg PO DAILY Qty: 90 3RF Referrals: Danika Mack MD [Physician] - Carol Wood DO [Primary Care Provider] - Stand Alone Forms: Patient Portal/API, Work Release Note
[2023-12-30] MEDS: diazePAM 2 MG TABLET PO (21:20)
[2023-12-30] MEDS: ACETAMINOPHEN 325 MG TABLET 975 MG PO (21:20)
[2023-12-30] MEDS: OXYCODONE IR 5 MG TABLET PO (21:20)
[2023-12-30] MEDS: KETOROLAC 30 MG/ML VIAL IM (21:21)
[2023-12-30] MEDS: ONDANSETRON 4 MG/2 ML INJ IV (21:27)
[2023-12-30] MEDS: TRAMADOL 50 MG PREPACK 1 BOTTLE MISC (21:41)
== END 2023-12-30 21:45 | disposition home or self-care (01) ==
PROVIDERS: Emergency Provider Emergency Medicine; PCP Family Medicine
DX: M25.562 Pain in left knee (principal)
CPT/HCPCS: 73562; 96372; 96374; 99284; J1885; J2405

== ENCOUNTER → 2024-01-22 08:35 | Outpatient (CLI) | payer OTHER, SELFPAY ==
--- NOTE | 2024-01-22 08:36 | DI.MRI.S_ITS ---
PROCEDURE: MR KNEE LT WO CON INDICATIONS: left knee pain TECHNIQUE: Noncontrast sagittal PD fast spin echo and T2 fast spin echo with fat saturation, sagittal 3-D FLASH with fat saturation; coronal T1 spin echo and PD fast spin echo with fat saturation, and axial PD fast spin echo with fat saturation through the knee. COMPARISON: [facility], CR, XR KNEE LT 3V, 12/30/2023, 18:19. [facility], CR, XR KNEE LT 3V, 12/06/2023, 17:02. FINDINGS: Image quality: Excellent. Menisci: Medial and lateral meniscal extrusions. There is complex tear involving the posterior horn and body of the medial meniscus. There is tear of the anterior root ligament of the lateral meniscus. Cruciate ligaments: The anterior cruciate ligament is intact. Mild T2 hyperintensity in the distal PCL at the insertion to the posterior aspect of the tibial eminence with associated bone marrow edema (series 7 image 15), suggesting low-grade partial tear. Medial structures: There is grade 1 sprain of medial collateral ligament, probably chronic. There is mild strain of the semimembranosus tendon insertions. No meniscocapsular junction separation. Visualized portions of the pes anserinus tendons appear normal. No abnormal bursal fluid. Lateral structures: The lateral collateral ligament, long and short heads of the biceps femoris tendon appear intact. The popliteus tendon appears normal. Iliotibial band appears normal. Anterior structures: The quadriceps and patellar tendons appear intact. Patellar alignment is normal. No femoral trochlear dysplasia or ventral trochlear prominence. Mild edema in the infrapatellar fat pad. There is nonspecific superficial soft tissue swelling in the anterior inferior knee. Bones and cartilage: No bone marrow contusions or fractures. Mild tricompartmental cartilage thinning and fibrillation. There is a near full-thickness cartilage fissure in the lateral facet of patella. Joint space: There is moderate knee joint effusion. No Hinojosa's cyst. Normal appearing synovial plicae are incidentally noted. IMPRESSION: 1. Complex tear of the posterior horn body of the medial meniscus. 2. Tear of the anterior root ligament of the lateral meniscus. 3. Probably chronic low-grade partial tear of the distal PCL with associated edema in the posterior tibial eminence contusion. 4. Tricompartmental cartilage thinning and fibrillation. A near full-thickness cartilage fissure is noted in the lateral facet of patella. 5. Moderate knee joint effusion. Dictated by: Olu Romero M.D. on 01/22/2024 at 17:31 Approved by: Olu Romero M.D. on 01/24/2024 at 12:18
== END ==
PROVIDERS: PCP Family Medicine; Referring Provider Family Medicine; Visit Provider Family Medicine
DX: S83.232A Complex tear of medial meniscus, current injury, left knee, initial encounter (principal); S83.282A Other tear of lateral meniscus, current injury, left knee, initial encounter; S83.412A Sprain of medial collateral ligament of left knee, initial encounter; M25.562 Pain in left knee
CPT/HCPCS: 73721

== ENCOUNTER → 2025-04-19 14:30 | Outpatient (CLI) | payer OTHER, SELFPAY ==
--- NOTE | 2025-04-19 14:33 | DI.RAD.S_ITS ---
PROCEDURE: XR DEXA AXIAL SKELETON INDICATIONS: screen COMPARISON: None. FINDINGS: Lumbar Spine: Bone mineral density 0.966 g/cm2, T score -0.7. Left Femoral Neck: Bone mineral density 0.640 g/cm2, T score -1.9. Left Hip: Bone mineral density 0.757 g/cm2, T score -1.5. Fracture Risk Calculation (when applicable): 10-year fracture risk of a major osteoporotic fracture 6.8 percent and of a hip fracture 0.7 percent. (T score greater or equal to -1.0 to: NORMAL) (T score from -1.1 to -2.4: OSTEOPENIA) (T score less than or equal to -2.5: OSTEOPOROSIS) IMPRESSION: Osteopenia--- recommend repeat DEXA in 2-3 years for reassessment. Follow-up guidelines as follows: Osteoporosis: Consider a repeat DEXA and Vertebral Fracture Assessment (VFA) exam in 2 years or sooner if medically necessary, to reassess this patient's status. Osteopenia: Consider a repeat DEXA in 2-3 years to reassess this patient's status, or if there is a new clinical indication. Normal: Consider a repeat DEXA in 5 years or sooner, or if there is a new clinical indication. All treatment decisions require clinical judgment and consideration of individual patient factors, including patient preferences, comorbidities, previous drug use, risk factors not captured in the FRAX model (e.g., frailty, falls, vitamin D deficiency, increased bone turnover, interval significant decline in bone density ) and possible under- or over-estimation of fracture risk by FRAX. In addition, the NOF Guide recommends that FDA-approved medical therapies be considered in postmenopausal women and men age >= 50 years with a: * Hip or vertebral (clinical or morphometric) fracture * T-score of <=-2.5 at the spine or hip * Ten-year fracture probability by FRAX of >= 3% for hip fracture or >=20% for major osteoporotic fracture. Dictated by: Kvng Alanis M.D. on 04/19/2025 at 20:15 Approved by: Kvng Alanis M.D. on 04/19/2025 at 20:16
--- NOTE | 2025-04-19 14:51 | DI.CT.S_ITS ---
PROCEDURE: CT LUNG LOW DOSE SCREENING INDICATIONS: screen TECHNIQUE: Noncontrast 2.0-2.5 mm thick sections acquired from the pulmonary apices to the posterior costophrenic angles. 7 mm thick axial MIP, and 5 mm coronal and sagittal reformats were then acquired. For radiation dose reduction, the following was used: automated exposure control, adjustment of mA and/or kV according to patient size. COMPARISON: None. FINDINGS: Image quality: Diagnostic Lungs and pleura: No airspace consolidation or pleural effusion. No suspicious focal nodule. Multiple small nodules are seen, under 5 mm, for example in the right lung image Mediastinum, heart, and esophagus: Normal heart size. No lymph nodes enlarged by size criteria. Mild atherosclerotic calcifications. Unremarkable esophagus Chest wall and thyroid: Unremarkable Upper abdomen: No gross abnormality on these noncontrast low-dose images Bones: There are degenerative changes. No aggressive appearing osseous abnormality. IMPRESSION: No suspicious pulmonary nodules requiring more frequent follow-up. LUNG-RADS 2; continued annual screening, if eligible. Other findings above. Dictated by: Derek Rea M.D. on 04/19/2025 at 17:00 Approved by: Derek Rea M.D. on 04/19/2025 at 17:03
== END ==
PROVIDERS: PCP Family Medicine; Referring Provider Family Medicine; Visit Provider Family Medicine
DX: Z12.2 Encounter for screening for malignant neoplasm of respiratory organs (principal); R91.8 Other nonspecific abnormal finding of lung field; I25.10 Atherosclerotic heart disease of native coronary artery without angina pectoris; Z87.891 Personal history of nicotine dependence; Z13.820 Encounter for screening for osteoporosis; M85.852 Other specified disorders of bone density and structure, left thigh; E89.40 Asymptomatic postprocedural ovarian failure; Z82.62 Family history of osteoporosis
CPT/HCPCS: 71271; 77080

== ENCOUNTER → 2025-04-21 07:07 | Outpatient (CLI) | payer OTHER, SELFPAY ==
[2025-04-21 10:01] LABS: Alanine Aminotransferase 17 IU/L (<35); Albumin 4.1 g/dL (3.5-5.0); Albumin Globulin Ratio 2.0 (1.0-2.8); Alkaline Phosphatase 109 U/L (38-126); Blood Urea Nitrogen 11 mg/dL (7-17); Calcium 9.1 mg/dL (8.4-10.2); Carbon Dioxide 29 mmol/L (22-32); Chloride 105 mmol/L (98-107); Cholesterol 141 mg/dL (140-199); Estimated Glomerular Filt Rate > 60 mL/min (>60); Globulin 2.1 g/dL (1.7-4.1); Glucose 88 mg/dL (70-99); HDL Cholesterol 51 mg/dL (40-60); HEMOLYSIS < 15 (0-50); Potassium 4.2 mmol/L (3.4-5.1); Sodium 141 mmol/L (137-145); Total Protein 6.2 g/dL (6.3-8.2); Triglycerides 93 mg/dL (35-150)
== END ==
LOC: LAB 07:08
PROVIDERS: PCP Family Medicine; Referring Provider Family Medicine; Visit Provider Family Medicine
DX: E78.5 Hyperlipidemia, unspecified (principal); I10 Essential (primary) hypertension
CPT/HCPCS: 36415; 80053; 80061